=== PATIENT | female | born 1930 | race Asian ===

== ENCOUNTER 2017-02-17 16:44 | Emergency (ER) | payer MEDICARE, OTHER ==
[~2017-02-17] VITALS: Ht 149.9 cm; Wt 42.3 kg
[2017-02-17] MEDS ORDERED: TICA90TA PO (17:10)
[2017-02-17] MEDS ORDERED: ASPI81 PO (17:10)
[2017-02-17] MEDS ORDERED: VITAD400 PO (17:10)
[2017-02-17] MEDS ORDERED: LOSA50TA37 PO (17:10)
[2017-02-17] MEDS ORDERED: METO25 PO (17:10)
[2017-02-17] MEDS ORDERED: ATOR40TA28 PO (17:10)
[2017-02-17] MEDS ORDERED: DIPH25 PO (17:10)
[2017-02-17] MEDS ORDERED: [UNRECOGNIZED DRUG - CODE] PO (17:10)
[2017-02-17] MEDS ORDERED: LEVO88TA4 PO (17:10)
[2017-02-17 17:13] VITALS: BP 123/62
[2017-02-17 17:21] LABS: BASOPHILS # (AUTO) 0.05 K/uL (0.00-0.20); BASOPHILS % (AUTO) 0.5 % (0.0-2.0); EOSINOPHILS # (AUTO) 0.28 K/uL (0.00-0.70); EOSINOPHILS % (AUTO) 2.77 % (1.0-6.0); HEMATOCRIT 32.5 % (36-46); HEMOGLOBIN 10.2 g/dL (12.0-16.0); LYMPHOCYTES # (AUTO) 4.5 K/uL (1.0-4.8); LYMPHOCYTES % (AUTO) 44.2 % (22.0-44.0); MEAN CORPUSCULAR HEMOGLOBIN 21.8 pg (26.0-34.0); MEAN CORPUSCULAR HGB CONC 31.3 G/dL (31.0-37.0); MEAN CORPUSCULAR VOLUME 69 fL (80-100); MONOCYTES # (AUTO) 0.8 K/uL (0.1-1.0); MONOCYTES % (AUTO) 7.6 % (2.0-9.0); NEUTROPHILS # (AUTO) 4.6 K/uL (1.8-7.7); NEUTROPHILS % (AUTO) 44.9 % (40.0-70.0); PLATELET COUNT (AUTO) 231 K/uL (150-450); RED BLOOD CELL COUNT(AUTO) 4.68 MIL/uL (4.00-5.20); RED CELL DISTRIBUTION WIDTH 15.3 % (11.5-14.5); WHITE BLOOD COUNT (AUTO) 10.2 K/uL (4.5-11.0)
[2017-02-17 17:31] LABS: INR 0.9 (0.9-1.1)
[2017-02-17 17:39] LABS: ANION GAP 10 mmol/L (8-16); CALCIUM, TOTAL 8.6 mg/dL (8.8-10.5); CARBON DIOXIDE 26 mmol/L (22-29); CHLORIDE 107 mmol/L (98-107); CREATININE 0.79 mg/dL (0.60-1.30); GLOMERULAR FILTR. RATE CALC > 60 mL/min (>60); POTASSIUM 3.6 mmol/L (3.5-5.1); SODIUM SERUM 143 mmol/L (136-145); UREA NITROGEN, BLOOD 18 mg/dL (7-18)
[2017-02-17 17:40] LABS: B-TYPE NATRIURETIC PEPTIDE 75 pg/mL (0-100)
[2017-02-17] MEDS ORDERED: HEPARIN SODIUM,PORCINE 5,000 UNITS/ML VIAL SQ ONE (17:41)
[2017-02-17 17:44] LABS: ALANINE AMINOTRANSFERASE 64 U/L (12-78); ALBUMIN 3.2 g/dL (3.4-5.0); ASPARTATE AMINOTRANSFERASE 33 U/L (15-37); BILIRUBIN,TOTAL 0.5 mg/dL (0.1-1.0); CREATINE KINASE, TOTAL 52 U/L (26-192)
[2017-02-17] MEDS ORDERED: TICAGRELOR 90 MG TABLET PO ONE (17:45)
[2017-02-17] MEDS ORDERED: HEPARIN SODIUM,PORCINE 5,000 UNITS/ML VIAL IVP ONE (17:45)
[2017-02-17 17:52] LABS: RBC MORPHOLOGY COMMENT ABNORMAL RBC MORPH
== END 2017-02-17 17:48 | disposition short-term general hospital (02) ==
LOC: EMS 16:46
DX: I21.3 ST elevation (STEMI) myocardial infarction of unspecified site (principal); I25.2 Old myocardial infarction; E03.9 Hypothyroidism, unspecified; E78.00 Pure hypercholesterolemia, unspecified; I10 Essential (primary) hypertension; Z79.82 Long term (current) use of aspirin
CPT/HCPCS: 51702; 71010; 80053; 82550; 83880; 84484; 85025; 85610; 85730; 93005; 96374; 99291; J1644